=== PATIENT | male | born 1990 | race Caucasian/White ===

== ENCOUNTER 2018-12-02 14:04 | Emergency (ER) | payer OTHER ==
[~2018-12-02] VITALS: Ht 185.4 cm; Wt 75.0 kg
[2018-12-02 14:31] VITALS: BP 162/95; PULSE 88; RESP 18; Ht 185.4 cm; Wt 75.0 kg
[2018-12-02] MEDS ORDERED: SULF1TAB31 PO (16:36)
[2018-12-02] MEDS ORDERED: CEPH-443 PO (16:36)
[2018-12-02] MEDS ORDERED: MUPI22OI2 TOP (16:36)
[2018-12-02] MEDS ORDERED: DIPHTH/TET/ACEL PERTUSS (ADULT) 0.5 ML VIAL IM* ONE (17:00)
--- NOTE | 2018-12-02 17:00 | ERD ---
ER Documentation Chief Complaint Chief Complaint sores with pus bilateral knees and lower back x 1wk HPI This is a 28-year-old male with a nonsignificant past medical history presents ED with multiple sores on bilateral lower extremities for the past week. 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 Patient states that he noticed a rash on his right foot initially and the lesions spread to the bilateral legs and low back. Patient admits to some pain and purulent drainage coming from t hese wounds. Denies fever, chills, chest pain, shortness breath, trouble breathing and all other symptoms. No known drug allergies. No history of IV drug abuse. ROS All systems reviewed and are negative except as per history of present illness. Medications Home Meds Active Scripts Cephalexin* (Keflex*) 500 Mg Capsule, 500 MG PO QID for 10 Days, CAP Prov:YANIRA BECKER PA-C 12/02/18 Sulfamethoxazole/Trimethoprim* (Bactrim Ds* Tablet) 1 Each Tablet, 1 TAB PO BID, #14 TAB Prov:YANIRA BECKER PA-C 12/02/18 Mupirocin* (Bactroban*) 2% -22 Gram Oint...g., 1 APPLIC TOP BID for 7 Days, EA Prov:YANIRA BECKER PA-C 12/02/18 Allergies Allergies: Coded Allergies: No Known Allergy (Unverified , 12/02/18) FmHx Family History: No diabetes Physical Exam Vitals Vital Signs Date Temp Pulse Resp B/P (MAP) Pulse Ox O2 O2 Flow FiO2 Time Delivery Rate 12/02/18 97.6 88 18 162/95 99 14:31 (117) Physical Exam Const: No acute distress Head: Atraumatic Eyes: Normal Conjunctiva ENT: Normal External Ears, Nose and Mouth. Neck: Full range of motion. No meningismus. Resp: Clear to auscultation bilaterally Cardio: Regular rate and rhythm, no murmurs Skin: Multiple small pimple or furuncle-like lesions on patient's bilateral lower extremities roughly 8 in total, there are not large enough to be considered abscesses, mild purulent drainage expressed, no lymphatic streaking, no severe tenderness to palpation no petechiae or rashes Ext: No cyanosis, or edema Neur: Awake and alert Psych: Normal Mood and Affect Results 24 hrs Current Medications Medications Dose Sig/Gabino Start Time Status Last (Trade) Ordered Route PRN Stop Time Admin Dose Reason Admin Diphtheria/ 0.5 ml ONCE ONCE 12/02/18 DC Tetanus/Acell IM* 17:00 Pertussis 12/02/18 17:01 (Adacel) Procedures/MDM ER COURSE: The patient was stable throughout ED course. I kept the patient and/or family informed of laboratory and diagnostic imaging results throughout the emergency room course. The patient was promptly evaluated and a treatment plan was devised based on H&P and other data. This plan was discussed with the patient who agreed and had no further questions or concerns prior to discharge. MEDICAL DECISION MAKIN-year-old male presents ED with sores on bilateral lower extremities for the past week. liekly caused by staph infection. Patient given tetanus in the emergency department. There are no abscesses to be drained or fluctuant masses palpable. No evidence of scabies, STS, TEN, Lyme's disease, syphilis, [place] spotted fever, shingles, disseminated gonorrhea chlamydia, DIC, TTP, ITP, sepsis, necrotizing fasciitis, gangrene, or other emergent condition. Patient's vitals are stable and can be managed with outpatient close follow-up. Advised patient to follow-up with her primary care in the next 48 hours. Advised patient return to ED with any worsening symptoms. DISPOSITION PLAN: We discussed follow up with the patient's primary care doctor within 24 to 48 hours. Patient counseled regarding my diagnostic impression and care plan. Prior to discharge all questions answered. Pt agrees with treatment plan and understands strict return precautions. Precautionary instructions provided including instructions to return to the ER if not improving or for any worsening or changing symptoms or concerns. SPECIALIST FOLLOW UP RECOMMENDED: None Patient has been advised to follow up with primary care in 1-2 days. Disclaimer: Inadvertent spelling and grammatical errors are likely due to EHR/dictation software use and do not reflect on the overall quality of patient care. Also, please note that the electronic time recorded on this note does not necessarily reflect the actual time of the patient encounter. Blood Pressure Assessment: Patient's blood pressure was elevated (>120/80) but appears stable without evidence of hypertension emergency or urgency. The cookie ent was counseled about the risks of hypertension and urged to pursue outpatient monitoring and therapy within a week with their primary care physician. Departure Diagnosis: Primary Impression: Staph skin infection Condition: Stable Patient Instructions: Staph Infection (non-MRSA) Referrals: COMMUNITY CLINICS YOU HAVE RECEIVED A MEDICAL SCREENING EXAM AND THE RESULTS INDICATE THAT YOU DO NOT HAVE A CONDITION THAT REQUIRES URGENT TREATMENT IN THE EMERGENCY DEPARTMENT. FURTHER EVALUATION AND TREATMENT OF YOUR CONDITION CAN WAIT UNTIL YOU ARE SEEN IN YOUR DOCTORS OFFICE WITHIN THE NEXT 1-2 DAYS. IT IS YOUR RESPONSIBILITY TO MAKE AN APPOINTMENT FOR FOLOW-UP CARE. IF YOU HAVE A PRIMARY DOCTOR --you should call your primary doctor and schedule an appointment IF YOU DO NOT HAVE A PRIMARY DOCTOR YOU CAN CALL OUR PHYSICIAN REFERRAL HOTLINE AT IF YOU CAN NOT AFFORD TO SEE A PHYSICIAN YOU CAN CHOSE FROM THE FOLLOWING [facility] [address] [facility]. [facility] [address] [facility] [facility] [address] [facility] [facility] [address] [facility]. [facility] [address] [facility]. [facility] [address] Additional Instructions: Patient advised to return to the ED immediately for new or worsening symptoms. Patient advised to follow up with primary care provider in the next 24-48 hours. Patient verbalized understanding and agrees with treatment plan and course of action. If patient has no primary care they may follow up with one of the [facility] listed on the following page or one of the options listed below [facility] [address] [place] [address] or [facility] [address] [place] [address] or [facility] [address] [place] [address] YANIRA BECKER PA-C Dec 02, 2018 17:00
== END 2018-12-02 17:07 | disposition home or self-care (01) ==
LOC: FTE 14:04
DX: L08.9 Local infection of the skin and subcutaneous tissue, unspecified (principal); Z23 Encounter for immunization
CPT/HCPCS: 90471; 90715; Z7502